=== PATIENT | female | born 1975 | race Caucasian/White ===

== ENCOUNTER → 2016-12-14 | Outpatient (CLI) | payer OTHER ==
[2014-10-01 09:31] VITALS: BP 118/71
[~2016-12-14] MED LIST: ESOM40CA PO
--- NOTE | 2016-12-14 12:11 | RAD ---
Examination: MRI of the right shoulder without contrast History: History of right shoulder pain Comparison: None Technique: Multiplanar, multisequence MR imaging of the right shoulder was performed without contrast. Findings: The long the biceps tendon is within the bicipital groove. The attachment subscapularis tendon grossly appears intact. The attachment of the supraspinatus, infraspinatus tendon grossly appears intact. There is mild bursal sided fraying of the supraspinatus tendon. There is mild increased signal identified in the anterior labrum extending inferiorly. Mild acromioclavicular joint osteoarthrosis. The acromion is type II with the inferior aspect of the acromion abutting the superior aspect of the supraspinatus tendon. Fat is present within the rotator interval. The muscle bulk grossly appears unremarkable. There is mild increased T2 signal/edema identified in the teres minor muscle. Impression: 1. Bursal sided fraying of the supraspinatus tendon with the inferior aspect of the acromion abutting the supraspinatus tendon. Correlate for impingement. 2. Mild increased signal identified in the anterior labrum extending inferiorly. If labral pathology / tear is suspected , consider MR arthrogram for further evaluation. 3. Mild edema identified in the teres minor muscle. Correlate for quadrangular space syndrome.
== END | disposition home or self-care (01) ==
LOC: KCIC MRI 08:52
PROVIDERS: ATTEND Physician Assistant Medical
DX: M25.511 Pain in right shoulder (principal)
CPT/HCPCS: 73221

== ENCOUNTER → 2018-02-10 | Outpatient (CLI) | payer OTHER ==
[2018-02-10 07:52] LABS: ADD MAN DIFF? NO
[2018-02-10 08:05] LABS: BASO # 0.1 x10^3/uL (0.0-0.2); BASO % 1 % (0-3); EOS # 0.4 x10^3/uL (0.0-0.7); EOS % 8 % (0-3); HEMATOCRIT 41.7 % (36.0-47.0); HEMOGLOBIN 14.3 g/dL (12.0-15.5); LYMPH # 1.8 x10^3/uL (1.0-4.8); LYMPH % 37 % (24-48); MEAN CORPUSCULAR HEMOGLOBIN 30 pg (25-35); MEAN CORPUSCULAR HGB CONC 34 g/dL (31-37); MEAN CORPUSCULAR VOLUME 88 fL (79-100); MONO # 0.5 x10^3/uL (0.0-1.1); MONO % 10 % (0-9); NEUT # 2.1 x10^3uL (1.8-7.7); NEUT % 44 % (31-73); PLATELET COUNT 260 x10^3/uL (140-400); RED BLOOD COUNT 4.74 x10^6/uL (3.50-5.40); RED CELL DISTRIBUTION WIDTH 13.8 % (11.5-14.5); WHITE BLOOD COUNT 4.8 x10^3/uL (4.0-11.0)
[2018-02-10 08:36] LABS: ALBUMIN 3.6 g/dL (3.4-5.0); ALBUMIN/GLOBULIN RATIO 1.1 (1.0-1.7); ALK PHOS 63 U/L (46-116); ALT (SGPT) 24 U/L (14-59); ANION GAP 7 (6-14); AST (SGOT) 16 U/L (15-37); BLOOD UREA NITROGEN 12 mg/dL (7-20); BUN/CREATININE RATIO 17 (6-20); CALCIUM 8.8 mg/dL (8.5-10.1); CARBON DIOXIDE 31 mmol/L (21-32); CHLORIDE 104 mmol/L (98-107); CHOLESTEROL 203 mg/dL (0-200); CREATININE 0.7 mg/dL (0.6-1.0); GFR 91.8; GLUCOSE 95 mg/dL (70-99); HDLC 67 mg/dL (40-60); LDLC 124 mg/dL (0-100); NON-HDL CHOLESTEROL 136 mg/dL (0-129); POTASSIUM 3.8 mmol/L (3.5-5.1); SODIUM 142 mmol/L (136-145); TOTAL BILIRUBIN 0.6 mg/dL (0.2-1.0); TOTAL PROTEIN 6.8 g/dL (6.4-8.2); TRIGLYCERIDES 62 mg/dL (0-150); VLDLC 12 mg/dL (0-40)
[2018-02-10 08:46] LABS: THYROID STIM HORMONE (TSH) 1.583 uIU/mL (0.358-3.74)
[2018-02-10 08:46] LABS: FREE T4 0.98 ng/dL (0.76-1.46)
[2018-02-10 10:02] LABS: VITAMIN-B12 640 pg/mL (247-911)
[2018-02-10 12:13] LABS: ESTRADIOL LEVEL 38.5 pg/mL (.)
[2018-02-10 12:13] LABS: FSH 10.7 mIU/mL (.); LUTEINIZING HORMONE 7.1 mIU/mL (.); PROGESTERONE 0.4 ng/mL (.)
[2018-02-12 14:36] LABS: ESTRONE LEVEL 25 pg/mL (.)
== END | disposition home or self-care (01) ==
LOC: LAB 06:50
DX: N92.6 Irregular menstruation, unspecified (principal); R53.83 Other fatigue; R68.82 Decreased libido; R79.89 Other specified abnormal findings of blood chemistry
CPT/HCPCS: 36415; 80053; 80061; 82306; 82607; 82670; 82679; 83001; 83002; 84144; 84402; 84403; 84439; 84443; 85025

== ENCOUNTER → 2020-04-19 | Outpatient (CLI) | payer OTHER ==
[2014-10-01 09:31] VITALS: BP 118/71
== END | disposition home or self-care (01) ==
LOC: SPEC 11:36
PROVIDERS: ATTEND Obstetrics & Gynecology
DX: Z01.419 Encounter for gynecological examination (general) (routine) without abnormal findings (principal); R87.610 Atypical squamous cells of undetermined significance on cytologic smear of cervix (ASC-US)
CPT/HCPCS: 87623; 88175

== ENCOUNTER → 2020-11-07 | Outpatient (CLI) | payer OTHER ==
[2014-10-01 09:31] VITALS: BP 118/71
[2020-11-07 07:54] LABS: BASO # 0.1 x10^3/uL (0.0-0.2); BASO % 1 % (0-3); EOS # 0.4 x10^3/uL (0.0-0.7); EOS % 7 % (0-3); HEMATOCRIT 42.8 % (36.0-47.0); HEMOGLOBIN 14.1 g/dL (12.0-15.5); LYMPH # 1.5 x10^3/uL (1.0-4.8); LYMPH % 29 % (24-48); MEAN CORPUSCULAR HEMOGLOBIN 29 pg (25-35); MEAN CORPUSCULAR HGB CONC 33 g/dL (31-37); MEAN CORPUSCULAR VOLUME 89 fL (79-100); MONO # 0.5 x10^3/uL (0.0-1.1); MONO % 10 % (0-9); NEUT # 2.7 x10^3/uL (1.8-7.7); NEUT % 53 % (31-73); PLATELET COUNT 276 x10^3/uL (140-400); RED CELL DISTRIBUTION WIDTH 13.9 % (11.5-14.5); WHITE BLOOD COUNT 5.2 x10^3/uL (4.0-11.0)
[2020-11-07 07:56] LABS: BILIRUBIN,URINE NEGATIVE (NEG); CLARITY,URINE CLEAR; COLOR,URINE YELLOW; NITRITE,URINE NEGATIVE (NEG); PH,URINE 7.5 (<5.0-8.0); PROTEIN,URINE NEGATIVE (NEG-TRACE); UROBILINOGEN,URINE 0.2 mg/dL (0.2 mg/dL)
[2020-11-07 08:11] LABS: BACTERIA,URINE 0 /HPF (0-FEW); RBC,URINE 0 /HPF (0-2); WBC,URINE 0 /HPF (0-4)
[2020-11-07 08:16] LABS: ALBUMIN 3.8 g/dL (3.4-5.0); ALBUMIN/GLOBULIN RATIO 1.2 (1.0-1.7); CALCIUM 9.1 mg/dL (8.5-10.1); CREATININE 0.7 mg/dL (0.6-1.0); GFR 90.5; POTASSIUM 4.3 mmol/L (3.5-5.1); TOTAL BILIRUBIN 0.4 mg/dL (0.2-1.0); TOTAL PROTEIN 7.1 g/dL (6.4-8.2)
[2020-11-07 08:27] LABS: FREE T4 1.36 ng/dL (0.76-1.46); THYROID STIM HORMONE (TSH) 1.358 uIU/mL (0.358-3.74)
== END ==
LOC: LAB 07:25 → EDSTATUS 14:06
PROVIDERS: ATTEND Physician Assistant
DX: R53.83 Other fatigue (principal); L65.9 Nonscarring hair loss, unspecified
CPT/HCPCS: 36415; 80053; 80061; 81001; 82306; 84439; 84443; 85025

== ENCOUNTER → 2021-07-04 | Outpatient (CLI) | payer OTHER ==
[2014-10-01 09:31] VITALS: BP 118/71
== END ==
LOC: LAB 12:06
PROVIDERS: ATTEND Internal Medicine Pulmonary Disease
DX: U07.1 COVID-19 (principal)
CPT/HCPCS: U0003; U0005